=== PATIENT | female | born 1975 | race Caucasian/White ===

== ENCOUNTER 2018-03-12 16:25 | Emergency (ER) | payer MEDICAID | END 2018-03-12 17:32 | disposition home or self-care (01) | LOC: E/R 16:25 | DX: L29.9 Pruritus, unspecified (principal) | CPT/HCPCS: 99283; Z7502 ==

== ENCOUNTER 2018-03-25 19:26 | Emergency (ER) | payer MEDICAID | END 2018-03-25 21:27 | disposition home or self-care (01) | LOC: FTE 19:26 | DX: J02.9 Acute pharyngitis, unspecified (principal) | CPT/HCPCS: 99283; Z7502 ==